=== PATIENT | male | born 1955 | race Caucasian/White ===

== ENCOUNTER → 2018-07-13 09:32 | Outpatient (CLI) | payer BC, SELFPAY ==
--- NOTE | 2018-07-13 09:36 | RAD_ITS ---
STUDY: AIR-CONTRAST UPPER GI SERIES. REASON FOR EXAM: Male, 62 years old. The patient has a history of achalasia. Weight loss. Vomiting. FLUOROSCOPY TIME (if supplied): (1:10) minutes/seconds. 17 images were obtained. TECHNIQUE: The patient ingested barium. Multiple images of the esophagus, stomach and duodenum were obtained. COMPARISON: None. FINDINGS: There is a marked degree of distention of the esophagus. There is no evidence of peristaltic activity. There is narrowing at the most distal portion of the esophagus. Findings are in keeping with achalasia. The stomach and duodenum are unremarkable. RAD/Upper GI Series Only IMPRESSION: Marked distention of the esophagus with retained barium and food particles as described with narrowing of the distal esophagus. There is no peristaltic activity of the esophagus. Achalasia should be ruled out. Electronically Signed: Jaswinder Guillory MD at 10:24 EST Tel [phone], Service support ,
--- OUTSIDE RECORDS SUMMARY | 2018-08-29 03:12 | XMS RPT_ITS | Summary of Care ---
:1955 Author Organization [facility] Address [address] [place] [address] Phone Care Team Providers Name Role Phone Unavailable Primary Care Provider Unavailable Encounter Details Date Type Department Care Team Description 07/27/2017 Hospital Encounter [facility], [facility], [address] [place] [address] [address] [phone] [place] [address] Social History Tobacco Use Types Packs/Day Years Used Date Never Assessed Sex Assigned at Date Recorded Not on file as of this encounter Plan of Treatment Not on fileas of this encounter
--- OUTSIDE RECORDS SUMMARY | 2018-08-29 03:12 | XMS RPT_ITS | Summary of Care ---
:1955 Author Organization [facility] Address [address] [place] [address] Phone Care Team Providers Name Role Phone Unavailable Primary Care Provider Unavailable Encounter Details Date Type Department Care Team Description 07/07/2018 [facility] Haris Hook MD Arrived [address] [place] [address] [address] [place] [address] Social History Tobacco Use Types Packs/Day Years Used Date Never Assessed Sex Assigned at Date Recorded Not on file as of this encounter Plan of Treatment Health Maintenance Due Date Last Done Comments HEPATITIS C VIRUS SCREENING 1955 HIV SCREENING DISCUSSION 1968 TETANUS 1973 TDAP (ADULT) 1974 LIPID SCREENING 1995 COLON CANCER SCREENING DISCUSSION 2005 PROSTATE CANCER SCREENING DISCUSSION 2005 INFLUENZA VACCINE (#1) 2018 as of this encounter
--- OUTSIDE RECORDS SUMMARY | 2018-08-29 03:12 | XMS RPT_ITS ---
:1955 Author Organization [place] Care Team Providers Name Role Phone German Pantoja Attending Unavailable German Pantoja Referring Unavailable [facility] Unavailable KO BLAKELY W Attending Unavailable SELF, SELF Referring Unavailable MASCI, PAYAM A Referring Unavailable MASCI, PAYAM A Attending Unavailable MASCI, PAYAM Quintana Referring Unavailable HANTUSZAN Attending Unavailable HANTUSZAN Referring Unavailable MASCIPAYAM Referring Unavailable MASCIPAYAM Attending Unavailable MASCPAYAM Dunn Referring Unavailable RHONDATZAN PERAZA Attending Unavailable MASCIPAYAM Referring Unavailable GERMAN PANTOJA Attending Unavailable MASCPAYAM Dunn Referring Unavailable FAITH, SUDISH Attending Unavailable GERMAN PANTOJA Referring Unavailable KO BLAKELY Admitting Unavailable KO BLAKELY Attending Unavailable KO BLAKELY Consulting Unavailable NONE, NONE Consulting Unavailable KO BLAKELY Admitting Unavailable KO BLAKELY Attending Unavailable KO BLAKELY Consulting Unavailable PROBLEMS PROBLEMS DATE TYPE CONDITION / ATTENDING STATUS SOURCE CODE 07/13/2018 Active Early satiety / NA Active [facility] R68.81(ICD-10) [facility] [place] Repository 07/12/2018 Unknown MALIGNANT KO BLAKELY Active [facility] NEOPLASM OF Hospital PROSTATE / Repository C61(ICD-10) 07/12/2018 Admitting PROSTATE CA / KO BLAKELY Active [facility] diagnosis 185(ICD-9) Hospital Repository 07/12/2018 Unknown PROSTATE CA / ZORA, KO Active [facility] 185(ICD-9) Hospital Repository 07/12/2018 Admitting MALIGNANT ZORA, KO Active [facility] diagnosis NEOPLASM OF Hospital PROSTATE / Repository C61(ICD-10) 07/11/2018 Unknown ELEVATED KO BLAKELY Active [facility] PROSTATE SPEC Hospital ANTIGEN / Repository R97.20(ICD-10) 07/11/2018 Admitting ELEVATED KO BLAKELY Active [facility] diagnosis PROSTATE SPEC Hospital ANTIGEN / Repository R97.20(ICD-10) 07/15/2016 Active Lymphoid NA Active [facility] leukemia, [facility] [place] unspecified, in Repository relapse / C91.92(ICD-10) PROCEDURES PROCEDURES No Procedure Records FoundRESULTS RESULTS PROGRESS Observed: 07/18/2018 Status: COMPLETED Source: [place] 11:17 AM [facility] RE[facility]IT[facility] HNO ID: [id number] Author: Vivek London Service: (none) Author Type: Physician Type: Progress Notes Filed: 07/18/2018 11:17 AM Note Text: I have read and reviewed the documentation and agree. I wish to add the following findings which have been dictated. Vivek London MD, PhD CNOV Observed: 07/18/2018 Status: COMPLETED Source: [place] 10:20 AM [facility] Office Visit (BENJAMIN) KEYSHAWN JO ([id number]) 1955 M Date Time Provider Department 07/18/18 10:20 AM VIVEK LONDON During your visit today, we recorded the following information about you: Temperature Pulse Blood pressure Weight 97.8 degrees 57/minute 155/82 107.5 kg Height 1.854 m Sally Butler, RN, RN 07/18/2018 11:17 AM Signed [facility] OUTPATIENT CONSULT NOTE Keyshawn Jo [id number] Requesting Provider: Dr. Pantoja Thoracic Physician: Vivek London MD Chief Complaint: sigmoid esophagus s/p lap heller 1999 (former pt of Dr. Barnes) Impression: see dictation Plan: see dictation HPI: Keyshawn Jo is a 62 year old White male referred by Dr. Pantoja for an opinion regarding management of sigmoid esophagus s/p lap heller 1999 (former pt of Dr. Barnes). he is currently see dictation. See dictation ECOG Score: 0 Living arrangement: Lives with family/friend Functional status: Independent Unintentional weight loss over last 3 months: Yes, 50lbs over the last year PAST MEDICAL HISTORY: PAST MEDICAL HISTORY Diagnosis Date - Achalasia - Bladder stone - Bradycardia - Chikungunya fever - CLL (chronic lymphocytic leukemia) (HCC) - Hypertension - Kidney stone - Meniscus tear Left knee - Prostate CA (HCC) PAST SURGICAL HISTORY: PAST SURGICAL HISTORY Procedure Laterality Date - HELLER MYOTOMY, THOR 1999 - KNEE ARTHROSCOP MENISCUS REPAIR MED/LAT left - PAST SURGICAL HISTORY OF 02/03/2017 Umbilical Hernia - REMOVAL OF KIDNEY STONE - REMOVE BLADDER STONE,<2.5CM - TOTAL KNEE REPLACEMENT 02/05/2015 Left knee FAMILY HISTORY: FAMILY HISTORY Problem Relation Age of Onset - Hypertension Mother - other (kidney stone) Mother - Hypertension Father - Cancer Father Melanoma - other (kidney stone) Father - other (kidney stone) Brother - Cancer Paternal Grandfather throat SOCIAL HISTORY: Social History Substance Use Topics - Smoking status: Never Smoker - Smokeless tobacco: Never Used - Alcohol use No MEDICATIONS: Prior to Admission Medications: clonazePAM (KLONOPIN) 0.5 mg tablet Take 1 tablet by mouth daily at bedtime for 180 days. lisinopril (ZESTRIL, PRINIVIL) 20 mg tablet Take 20 mg by mouth once daily. zonisamide (ZONEGRAN) 100 mg capsule Take 1 cap in the AM and 4 caps in the PM ALLERGIES: ALLERGIES Allergen Reactions - Asa [Aspirin] Hives - Ibuprofen Hives Pt. 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 No COMPLETE REVIEW OF SYSTEMS Constitutional: Negative for Malaise and fever, Positive for significant weight loss HEENT: Negative for frequent or significant headaches, No changes in hearing or vision, no nose bleeds or other nasal problems Resp: Negative for cough, wheezing, or shortness of breath Cardiovascular: Positive for chest pain GI: Positive for constipation : No history of dysuria, frequency, or incontinence, positive for prostate cancer Endo: Negative for cold or heat intolerance, polyuria, polydipsia and goiter Heme/Lymph: Negative for prolonged bleeding, bruising easily or swollen nodes Neurologic: Positive for seizures Integumentary: Negative for lesions, rash, and itching. Additional systems reviewed: Musculoskeletal: Negative for joint pain or swelling, back pain or muscle pain and Psychiatric: Positive for sleep disturbance PHYSICAL EXAM BP 155/82 Pulse 57 Temp 97.8 Ht 6' 1 (1.85m) Wt 237 lb (107.5kg) SpO2 99% BMI 31.27 kg/(m2). See dictation DATA: Radiology: see dictation I have personally reviewed the following images/data: see dictation Outside Paper Medical Records Review personally performed by: see dictation SIGNATURE: Dr. London DATE of SERVICE: 07/18/2018 TIME of SERVICE: 10:08 AM Bruce Velazquez 07/18/2018 10:09 AM Signed Offered and declined Flu vaccine. Vivek London MD, PhD 07/18/2018 11:17 AM Signed I have read and reviewed the documentation and agree. I wish to add the following findings which have been dictated. Vivek London MD, PhD Referring Provider: GERMAN PANTOJA [[id number]] Allergies As of Date: 07/18/2018 Noted Allergy Reaction ASA (ASPIRIN) 10/11/2013 4 - Hives IBUPROFEN 10/11/2013 4 - Hives Comments: Pt. can't take larger doses of ibuprofen, but can tolerate 1 tab as needed TYLENOL (ACETAMINOPHEN) 10/11/2013 4 - Hives Date Reviewed: 07/18/2018 Reviewed by: Bruce Velazquez - Fully Assessed Primary Visit Diagnosis:ACHALASIA [K22.0] Prescriptions as of 07/18/2018 Sig: CLONAZEPAM 0.5 MG TABLET Take 1 tablet by mouth daily * LISINOPRIL 20 MG TABLET Take 20 mg by mouth once blanche* ZONISAMIDE 100 MG CAPSULE Take 1 cap in the AM and 4 ca* Problem List As Of Date 07/18/2018 Noted Resolved CLL (chronic lymphocytic leukemia) (HCC) [C91.9*INVALID FOR*07/15/2016 Prostate cancer [C61] INVALID FOR* Uric acid bladder stone [N21.0] INVALID FOR* BPH (benign prostatic hypertrophy) with urinary*INVALID FOR* Elevated prostate specific antigen (PSA) [R97.2*INVALID FOR* CLL (chronic lymphoid leukemia) in relapse (HCC*INVALID FOR* Chemotherapy induced nausea and vomiting [R11.2*INVALID FOR* Partial epilepsy with impairment of consciousne*INVALID FOR* Visit Notes: >> Bruce Joshi Jul 18, 2018 10:08 AM Status: Signed Offered and declined Flu vaccine. Medications Discontinued During This Encounter ibrutinib (IMBRUVICA) 140 mg capsule 30 c* 5 07/05/2017 07/18/2018 Class: [facility] [place] Special[facility] RX Cmt: Patient currently has enough medication to last until September. Route: ORAL Sig: Take 1 capsule by mouth once daily. Patient not taking: Reported on 02/13/2018 Disc: Discontinued by another Health Care Provider melatonin 10 mg tab 07/18/2018 Class: Historical Med Route: ORAL Sig: Take 1 tablet by mouth at bedtime as needed. Disc: Discontinued by another Health Care Provider ondansetron (ZOFRAN) 8 mg tablet 120 * 5 01/25/2017 07/18/2018 Route: ORAL Sig: Take 1 tablet by mouth every 6 hours as needed for Nausea/Vomiting. Indications: CANCER CHEMOTHERAPY-INDUCED NAUSEA AND VOMITING Patient not taking: Reported on 07/07/2018 Disc: Discontinued by another Health Care Provider Follow-up and Disposition History Recorded Encounter Status:Closed by FAITH FLOR, VIVEK Crum PHD on 07/18/18 PROGRESS Observed: 07/18/2018 Status: COMPLETED Source: [place] 10:07 AM [facility] REPOSITORY HNO ID: [id number] Author: Sally (Rn) ARNOLD Butler Service: (none) Author Type: Registered Nurse Type: Progress Notes Filed: 07/18/2018 11:17 AM Note Text: [facility] OUTPATIENT CONSULT NOTE Keyshawn Jo [id number] Requesting Provider: Dr. Pantoja Thoracic Physician: Vivek London MD Chief Complaint: sigmoid esophagus s/p lap heller 1999 (former pt of Dr. Barnes) Impression: see dictation Plan: see dictation HPI: Keyshawn Jo is a 62 year old White male referred by Dr. Pantoja for an opinion regarding management of sigmoid esophagus s/p lap heller 1999 (former pt of Dr. Barnes). he is currently see dictation. See dictation ECOG Score: 0 Living arrangement: Lives with family/friend Functional status: Independent Unintentional weight loss over last 3 months: Yes, 50lbs over the last year PAST MEDICAL HISTORY: PAST MEDICAL HISTORY Diagnosis Date - Achalasia - Bladder stone - Bradycardia - Chikungunya fever - CLL (chronic lymphocytic leukemia) (HCC) - Hypertension - Kidney stone - Meniscus tear Left knee - Prostate CA (HCC) PAST SURGICAL HISTORY: PAST SURGICAL HISTORY Procedure Laterality Date - HELLER MYOTOMY, THOR 1999 - KNEE ARTHROSCOP MENISCUS REPAIR MED/LAT left - PAST SURGICAL HISTORY OF 02/03/2017 Umbilical Hernia - REMOVAL OF KIDNEY STONE - REMOVE BLADDER STONE,<2.5CM - TOTAL KNEE REPLACEMENT 02/05/2015 Left knee FAMILY HISTORY: FAMILY HISTORY Problem Relation Age of Onset - Hypertension Mother - other (kidney stone) Mother - Hypertension Father - Cancer Father Melanoma - other (kidney stone) Father - other (kidney stone) Brother - Cancer Paternal Grandfather throat SOCIAL HISTORY: Social History Substance Use Topics - Smoking status: Never Smoker - Smokeless tobacco: Never Used - Alcohol use No MEDICATIONS: Prior to Admission Medications: clonazePAM (KLONOPIN) 0.5 mg tablet Take 1 tablet by mouth daily at bedtime for 180 days. lisinopril (ZESTRIL, PRINIVIL) 20 mg tablet Take 20 mg by mouth once daily. zonisamide (ZONEGRAN) 100 mg capsule Take 1 cap in the AM and 4 caps in the PM ALLERGIES: ALLERGIES Allergen Reactions - Asa [Aspirin] Hives - Ibuprofen Hives Pt. 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 No COMPLETE REVIEW OF SYSTEMS Constitutional: Negative for Malaise and fever, Positive for significant weight loss HEENT: Negative for frequent or significant headaches, No changes in hearing or vision, no nose bleeds or other nasal problems Resp: Negative for cough, wheezing, or shortness of breath Cardiovascular: Positive for chest pain GI: Positive for constipation : No history of dysuria, frequency, or incontinence, positive for prostate cancer Endo: Negative for cold or heat intolerance, polyuria, polydipsia and goiter Heme/Lymph: Negative for prolonged bleeding, bruising easily or swollen nodes Neurologic: Positive for seizures Integumentary: Negative for lesions, rash, and itching. Additional systems reviewed: Musculoskeletal: Negative for joint pain or swelling, back pain or muscle pain and Psychiatric: Positive for sleep disturbance PHYSICAL EXAM BP 155/82 Pulse 57 Temp 97.8 Ht 6' 1 (1.85m) Wt 237 lb (107.5kg) SpO2 99% BMI 31.27 kg/(m2). See dictation DATA: Radiology: see dictation I have personally reviewed the following images/data: see dictation Outside Paper Medical Records Review personally performed by: see dictation SIGNATURE: Dr. London DATE of SERVICE: 07/18/2018 TIME of SERVICE: 10:08 AM HOSP Observed: 07/18/2018 Status: COMPLETED Source: [place] 12:00 AM [facility] Patient Update (BENJAMIN) KEYSHAWN JO ([id number]) 1955 M Date Time Provider Department 07/18/18 VIVEK LONDON During your visit today, we recorded the following information about you: Allergies As of Date: 07/18/2018 Noted Allergy Reaction ASA (ASPIRIN) 10/11/2013 4 - Hives IBUPROFEN 10/11/2013 4 - Hives Comments: Pt. can't take larger doses of ibuprofen, but can tolerate 1 tab as needed TYLENOL (ACETAMINOPHEN) 10/11/2013 4 - Hives Date Reviewed: 07/18/2018 Reviewed by: Bruce Velazquez - Fully Assessed Reason for Visit: Schedule Surgery [1330] Primary Visit Diagnosis:ACHALASIA [K22.0] Other Visit Diagnoses:Achalasia of cardia [K22.0] Encounter for other preprocedural examination [Z01.818] Order(s):SURGICAL REQUEST - ELECTIVE [[id number]] Order #: [id number]: 1 CT CHEST W IVCON [[id number]] Order #: [id number] FUTURE CT ABDOMEN W IVCON [[id number]] Order #: [id number] FUTURE iv contrast (will be provided with radiology test)CT Chest Abdomen-Inject, intravenously, once for 1 dose.No IV access, insert saline lock prior to the beginning of sedation, infusion, injection of imaging exam. Discontinue saline lock post exam. If Pt. has a central line or IVAD, may access for administration according to line specific nursing protocol. Once exam is complete flush line and de-access according to line specific nursing protocol in the CT contrast administration guidelines link.Disp: 1 EachRfl: 0 enteric contrast (will be provided with radiology test)For CT Chest Abdomen W IVCON order Administer, As Directed One Time Only, via Oral, Rectal, both Oral and Rectal, Enteric Tube, Stoma or Indwelling Catheter, Enteric Contrast as designated per enteric contrast guidelinesDisp: 1 EachRfl: 0 SIX MINUTE WALK [[id number]] Order #: [id number] FUTURE SPIROMETRY WITH DILATOR IF OBSTRUCTED [[id number]] Order #: [id number] FUTURE LUNG DIFFUSION CAPACITY (DLCO) [[id number]] Order #: [id number] FUTURE EXERCISE STRESS W/NUC IMAGING [[id number]] Order #: [id number]: 1 NM CARDIAC PERF STRESS/EXERCISE [[id number]] Order #: [id number] FUTURE Prescriptions as of 07/18/2018 Sig: CLONAZEPAM 0.5 MG TABLET Take 1 tablet by mouth daily * ENTERIC CONTRAST (RADIOLOGY P* For CT Chest Abdomen W IVCON * IV CONTRAST (RADIOLOGY PROCED* CT Chest Abdomen-Inject, intr* LISINOPRIL 20 MG TABLET Take 20 mg by mouth once blanche* ZONISAMIDE 100 MG CAPSULE Take 1 cap in the AM and 4 ca* Problem List As Of Date 07/18/2018 Noted Resolved CLL (chronic lymphocytic leukemia) (HCC) [C91.9*INVALID FOR*07/15/2016 Prostate cancer [C61] INVALID FOR* Uric acid bladder stone [N21.0] INVALID FOR* BPH (benign prostatic hypertrophy) with urinary*INVALID FOR* Elevated prostate specific antigen (PSA) [R97.2*INVALID FOR* CLL (chronic lymphoid leukemia) in relapse (HCC*INVALID FOR* Chemotherapy induced nausea and vomiting [R11.2*INVALID FOR* Partial epilepsy with impairment of consciousne*INVALID FOR* Achalasia, esophageal [K22.0] INVALID FOR* More... Prescriptions ordered this encounter Disp Refills Start End IV CONTRAST (RADIOLOGY PROCEDURE) 1 Ea* 0 07/18/2018 07/19/2018 Class: In Office Sig: CT Chest Abdomen-Inject, intravenously, once for 1 dose.No IV access, insert saline lock prior to the beginning of sedation, infusion, injection of imaging exam. Discontinue saline lock post exam. If Pt. has a central line or IVAD, may access for administration according to line specific nursing protocol. Once exam is complete flush line and de-access according to line specific nursing protocol in the CT contrast administration guidelines link. Cosign required by VIVEK LONDON[[id number]] ENTERIC CONTRAST (RADIOLOGY PROCEDUR* 1 Ea* 0 07/18/2018 07/19/2018 Class: In Office Sig: For CT Chest Abdomen W IVCON order Administer, As Directed One Time Only, via Oral, Rectal, both Oral and Rectal, Enteric Tube, Stoma or Indwelling Catheter, Enteric Contrast as designated per enteric contrast guidelines Cosign required by VIVEK LONDON[[id number]] Follow-up and Disposition History Recorded Encounter Status:Closed by SUSIE LEW on 07/18/18 PROGRESS Observed: 07/15/2018 Status: COMPLETED Source: [place] 9:35 AM [facility] [place] REPOSITORY O ID: [id number] Author: German Pantoja Service: (none) Author Type: Physician Type: Progress Notes Filed: 07/15/2018 9:59 AM Note Text: HISTORY AND PHYSICAL Keyshawn Jo 1955 REFERRING PHYSICIAN: Payam Mills DO CHIEF COMPLAINT: egd consult - worsening dysphagia HPI: The patient is a 62 year old male referred to me by Dr. Payam Mills with complaints of worsening dysphagia. The patient has a history of chronic lymphocytic leukemia and prostate cancer. 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 He returns to [place] approximately twice a year for medical care in to see family. He related to Dr. Mills the fact that he has difficulty drinking water and early satiety. He was referred to me with the above complaints. Has a listed history of achalasia. There is no listing in a surgical history for a previous surgical procedure but review of distant surgical records demonstrates he underwent a laparoscopic Heller myotomy performed by Dr. Vaughn Barnes March 23, 2000. I had ordered and asked that he upper GI be obtained prior to presentation and possible endoscopy. The patient notes that he is at difficulty with swallowing for some time. He initially underwent balloon dilatation and when that failed his Heller myotomy. He states he has had worsening issues with food being retained within his esophagus. He basically feels he has to have food pass through gravity. He notes that he bends over he will regurgitate food eaten many hours previously. He specifically notes that he will occasionally eat a solid food item 2-3 meals previously. If he bends over then that food will regurgitate but liquid smaller foods seem to pass and not get regurgitated. The patient is being seen by me today at the request of Dr. Mills for my opinion and advice regarding worsening dysphagia. Upper GI series was obtained earlier today. This demonstrated marked distention the esophagus with retained barium and food particles with distal narrowing of the esophagus. There is felt to be no peristaltic activity the esophagus. Listed comment was achalasia should be ruled out PAST MEDICAL HISTORY Diagnosis Date - Achalasia - Bladder stone - Chikungunya fever - CLL (chronic lymphocytic leukemia) (HCC) - Kidney stone - Meniscus tear Left knee - Prostate CA (HCC) PAST SURGICAL HISTORY Procedure Laterality Date - KNEE ARTHROSCOP MENISCUS REPAIR MED/LAT left - PAST SURGICAL HISTORY OF 02/03/2017 Hernia - REMOVAL OF KIDNEY STONE - REMOVE BLADDER STONE,<2.5CM - TOTAL KNEE REPLACEMENT 02/05/2015 Left knee Current Outpatient Prescriptions: clonazePAM (KLONOPIN) 0.5 mg tablet Take 1 tablet by mouth daily at bedtime for 180 days. ibrutinib (IMBRUVICA) 140 mg capsule Take 1 capsule by mouth once daily. (Patient not taking: Reported on 02/13/2018 ) lisinopril (ZESTRIL, PRINIVIL) 20 mg tablet Take 20 mg by mouth once daily. melatonin 10 mg tab Take 1 tablet by mouth at bedtime as needed. ondansetron (ZOFRAN) 8 mg tablet Take 1 tablet by mouth every 6 hours as needed for Nausea/Vomiting. Indications: CANCER CHEMOTHERAPY-INDUCED NAUSEA AND VOMITING (Patient not taking: Reported on 07/07/2018 ) zonisamide (ZONEGRAN) 100 mg capsule Take 1 cap in the AM and 4 caps in the PM No current facility-administered medications for this visit. ALLERGIES: Asa [Aspirin]; Ibuprofen; Tylenol [Acetaminophen] PERSONAL HISTORY: Social History Marital status: Spouse name: Years of education: Number of children: Occupational History Occupation Employer Comment [employer] Social History Main Topics Smoking status: Never Smoker Smokeless tobacco: Never Used Alcohol use: No Drug use: No FAMILY HISTORY: FAMILY HISTORY Problem Relation Age of Onset - Hypertension Mother - other (kidney stone) Mother - Hypertension Father - Cancer Father Melanoma - other (kidney stone) Father - other (kidney stone) Brother - Cancer Paternal Grandfather throat REVIEW OF SYMPTOMS: The review of systems data was entered by the nurse and reviewed by or Nursing Notes: Thu Goldman Ma 07/13/2018 4:58 PM Signed REVIEW OF SYSTEMS: General: The patient NOTES fatigue, NOTES weight loss, denies weight gain, denies feeling hot, and denies feelings of cold. Eyes: The patient denies glaucoma, denies eye injury/surgery, does not wear glasses or contacts. Ear/Nose/Throat: The patient denies allergies, denies hayfever, denies ear infections, and denies bloody noses. Cardiovascular: The patient denies chest pain, denies heart disease, denies high blood pressure,denies cardiac stent, denies prior heart attack, denies irregular heart beat, denies high cholesterol, denies poor circulation, denies heart failure, other cardiac issues, denies claudication, denies cold feet, denies peripheral arterial stent. Respiratory: The patient denies tuberculosis, denies pneumonia, denies frequent cough, denies pulmonary embolism, denies shortness of breath, and denies coughing up blood. Gastrointestinal: The patient NOTES difficulty swallowing, NOTES acid reflux, denies ulcers, NOTES vomiting, denies jaundice/hepatitis, denies gallbladder problems, denies black or tarry stools, denies hemorrhoids, denies bleeding from rectum, denies diverticulitis, NOTES constipation, denies diarrhea, denies loss of stool control, and NOTES hernias. Kidney/Bladder: The patient NOTES kidney stones, denies urine infections, and NOTES bloody urine. Skin: The patient denies a history of skin cancer, denies bleeding/changing moles, and denies a history of skin rash. Neurologic: The patient NOTES a history of epilepsy/convulsions, denies headaches, denies head/spinal injuries, and denies stroke/TIA. Psychiatric: The patient denies psychiatric medications, denies depression, and denies voices, denies substance abuse. Endocrine: The patient denies thyroid disorders, denies diabetes, and denies hormonal problems. Hematologic: The patient denies a history of bruising, denies bleeding, and denies anemia, denies blood clots. Infections: The patient denies a history of measles and mumps, denies rheumatic fever, and denies sexually transmitted diseases. Musculoskeletal: The patient denies back pain/injury, denies back problems, denies sciatica, NOTES knee/foot trouble, denies arthritis, or denies gout. When was patient's last Mammogram screening? N/A Last Colonoscopy: At age 50 Thu Goldman Ma PHYSICAL EXAMINATION: General: The patient is 62 year old male, well nourished, well hydrated in no acute distress. The patient is oriented to time, place, and person. VITALS: Blood pressure 118/78, pulse (!) 46, temperature 36.3 ?C (97.3 ?F), temperature source Temporal Artery, resp. rate 16, height 185.4 cm (6' 1), weight 109.3 kg (241 lb). HEENT: Normal cephalic, ataumatic, pupils are equally round, sclera are anicteric, mucous membranes are moist, oropharynx is clear. Neck has no masses, asymmetry or lymphadenopathy. Thyroid is unremarkable. Respiratory: Clear to auscultation and percussion. Normal respiratory excursion and pattern. Cardiac: Examination is regular rate and rhythm. Abdominal exam: Soft, nontender, with no palpable masses. No hepatosplenomegaly. No palpable hernias. Rectal exam: exam deferred Extremities: no clubbing, cyanosis or edema. No adenopathy. Other: LABORATORY VALUES: As Noted RADIOLOGIC STUDIES: As Noted Assessment IMPRESSION: Severe recurring achalasia status post previous surgical procedure PLAN: I discussed with the patient this is the most impressive upper GI series I had ever seen. I was particularly impressed with his esophagus appeared larger than his stomach. I discussed with the patient I did not feel I could offer him any benefit via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 glucose results between 100 to 125 mg/dL indicate increased risk for diabetes (prediabetes). Fasting plasma glucose results greater than or equal to 126 mg/dL meet the criteria for diagnosis of diabetes. In the absence of unequivocal hyperglycemia, results should be confirmed by repeat testing. In a patient with classic symptoms of hyperglycemia or hyperglycemic crisis, random plasma glucose results greater than or equal to 200 mg/dL meet the criteria for diagnosis of diabetes. Reference: Standards of Medical Care in Diabetes 2016, [place] [employer] Association. Diabetes Care. 2016.39(Suppl 1). LAB BUN 9-24 mg/dL BUN 19 LAB CRET 0.73-1.22 mg/dL Creatinine 1.08 LAB NA 136-144 mmol/L Sodium 141 LAB K 3.7-5.1 mmol/L Potassium 4.1 LAB CL 97-105 mmol/L Chloride 105 LAB CO2 22-30 mmol/L CO2 26 LAB AGAP 9-18 mmol/L Anion Gap 10 LAB ALT 10-54 U/L ALT 15 LAB GFRAA eGFR- Amer. >60 LAB GFRNAA . eGFR-All Other Races >60 Result Comment: eGFR (Estimated GFR) Units of measure: mL/min/1.73 meters squared eGFR is derived from the reexpressed MDRD Study equation using the following parameters: serum creatinine, age, gender and race. The creatinine assay has been calibrated to be traceable to IDMS. An eGFR <60 mL/min/1.73m2 for >3 months is consistent with chronic kidney disease. Refer to KDOQI guidelines for clinical interpretation. In patients with unstable renal function, e.g. those with acute kidney injury, the eGFR may not accurately reflect actual GFR. Performed By: #### CMP #### [facility] [address] [place], [place] [address] PROGRESS Observed: 10/13/2017 Status: COMPLETED Source: GOLTRY 10:15 AM [facility] REPOSITORY HNO ID: [id number] Author: Magdalene Velez (Outpatient Tech) Service: (none) Author Type: (none) Type: Progress Notes Filed: 10/25/2017 2:33 PM Note Text: Unable to reach patient for refill of medication after multiple call attempts. Future follow-up scheduled. Magdalene Velez CPhT Machine Shop Worker, Oncology [facility] P: , F: ALLERGIES ALLERGIES DATE TYPE / CODE NAME / CODE REACTION SEVERITY SOURCE 05/06/2015 Drug aspirin/[id number]( Hives Unknown [place] Allergy/416 RXNORM) [facility] 213331([facility] ED CT) Repository 05/06/2015 Drug acetaminophen/F0060 Hives Unknown [place] Allergy/416 26543(RXNORM) [facility] 132569([facility] ED CT) Repository 05/06/2015 Drug ibuprofen/[id number] Hives Unknown [place] Allergy/416 7(RXNORM) [facility] 989527([facility] ED CT) Repository 10/11/2013 [facility] [place] 155313(SNOM Repository ED CT) 10/11/2013 [facility] [place] 717245(SNOM Repository ED CT) 10/11/2013 [facility]UG [facility]INOPHEN [facility] [place] [address] [address] [place] 566121(SNOM Repository ED CT) ENCOUNTERS ENCOUNTERS ADMIT/DISCHARGE ACCOUNT NUMBER ADMITTING ENCOUNTER LOCATION SOURCE CLASS 07/18/2018/07/28/20 [id number] [address] [place] Repository 07/13/2018/07/17/20 [id number] Ambulatory [address] [place] Repository 07/13/2018/07/13/20 [id number] Ambulatory [address] Repository 07/13/2018 [id number] Ambulatory [facility] ding:RAD Repository 07/12/2018/07/12/20 [id number] Ambulatory [address] Repository 07/11/2018 [id number] KO BLAKELY Ambulatory [facility] Repository :OUTPATIENT 07/07/2018 [id number] Ambulatory Building:[facility] Repository 07/07/2018/07/10/20 [id number] Ambulatory [address] Repository 07/07/2018/07/07/20 [id number] Ambulatory [address] Repository 07/04/2018/07/04/20 [id number] KO BLAKELY Ambulatory [facility] [facility] Repository :LAB 02/13/2018/02/14/20 [id number] Ambulatory [address] Repository 02/07/2018/02/09/20 [id number] Ambulatory [address] Repository 02/07/2018/02/09/20 [id number] Ambulatory [address] Repository PAYERS PAYERS ENCOUNTER GUARANTOR PAYER SUBSCRIBER SOURCE 07/13/2018 KEYSHAWN Luis Primary KEYSHAWN L Marlene [id number] Insurance:ANTHEMPolic BENSONDOB: [facility], [facility]: [id number] 12021Wqm: [id number] Repository Date:6433-51-15KT [address] () [id number] [place] [address] 78845EE: 07/13/2018 Secondary NOT GIVENUNK [place] Insurance:SELF PAY [facility] Number: Effective Repository Date:2018-07-07 07/11/2018 KEYSHAWN Henry KEYSHAWN [facility] BENSONDOB: Insurance:ANTHEMPolic BENSONDOB: [facility] y Number: [id number] Repository [facility] [id number] [address] [place], [place] Date:9315-79[place] [address] 79[address]Sia: [phone], [place] [phone] (HP) [address]3242~ [address]: 07/07/2018 KEYSHAWN BRAUN [facility] BENSONDOB: Insurance:ANTHEM O BENSONDOB: [place] O POSPolicy Number: [id number] [facility] [id number] [address] [place], [place] Date:7016[place]46[place], [place] Repository [address]Jcd: [phone] Name:MANAGED CARE 25074Gvc: (HP) [phone] (HP) 07/04/2018 KEYSHAWN [facility]WN [facility] Insurance:ANTHEMPolic [facility] y Number: [id number] Repository [facility] [id number] [address] [place], [place] Date:0121-61-43[place] [address] 486[address]Mni: [phone], [place] [phone] () [phone]~[facility] [phone]:
== END ==
PROVIDERS: Family Provider Family Medicine; PCP Family Medicine; Referring Provider Surgery; Visit Provider Surgery
DX: R13.10 Dysphagia, unspecified (principal)
CPT/HCPCS: 74246

== ENCOUNTER 2021-09-28 22:21 | Emergency (ER) | payer MEDICARE, OTHER, SELFPAY ==
[2021-09-28 22:22] VITALS: BP 133/74; PULSE 75; RESP 18; TEMP 36.4; O2SAT 96; BMI 29.2
[2021-09-28] MEDS: 0.9% Normal Saline 1,000 ML 50 ML IV (23:02)
--- NOTE | 2021-09-28 23:05 | RAD_ITS ---
EXAM: XR CHEST, 2 VIEWS CLINICAL INDICATION: Neutropenic Fever TECHNIQUE: Frontal and lateral views of the chest. This report was created using [employer] report generation technology. COMPARISON: 05/06/2015 FINDINGS: LUNGS AND PLEURAL SPACES: Unremarkable. No consolidation or edema. No pneumothorax. No effusion. HEART: Unremarkable. Cardiac silhouette not enlarged. MEDIASTINUM: Central airways and mediastinal contour are unremarkable. BONES/JOINTS: Unremarkable. SOFT TISSUES: Unremarkable. RAD/Chest PA and Lateral IMPRESSION: No radiographic evidence of acute cardiopulmonary disease. Electronically Signed: Lam Hurtado MD at 23:46 EST ,
[2021-09-28 23:06] LABS: Bacteria 0 SEEN /hpf (None Seen); Mucous, Urine 0 SEEN /hpf (<or=2+); Squamous Epithelial Cells - UA 0 SEEN /hpf (0-5); White Blood Cells 0 SEEN /hpf (0-5)
[2021-09-28 23:14] LABS: Color, Urine Yellow (Yellow); Glucose, Dipstick Normal (Normal); Ketone-Dipstick Negative (Negative); Leukocyte Esterase-Dipstick Negative /ul (Negative); Nitrite-Dipstick Negative (Negative); Occult Blood-Urine 25 /ul (Negative); Protein-Dipstick Negative (Negative); Specific Gravity, Urine 1.015 (1.002-1.030); Urine Bilirubin Dipstick Negative (Negative); Urine Clarity Clear (Clear); Urine Urobilinogen Normal (Normal)
[2021-09-28 23:19] LABS: Absolute Lymphocyte Count 82.18 X10^3/uL (0.83-4.51); Absolute Neutrophil Count 10.1 X10^3/uL (2.0-7.7); Basophil# 0.05 X10^3/uL; Eosinophil# 0.02 X10^3/uL; Hematocrit 38.9 % (40-54); Hemoglobin 12.4 g/dL (13.0-16.5); Lymphocyte # 82.18 X10^3/ul (0.83-4.51); Lymphocyte % 82.1 % (19-41); Mean Corp Hgb Conc 31.9 g/dL (32-36); Mean Corpuscular Hgb 28.8 pg (27.0-32.0); Mean Corpuscular Volume 90.3 fL (80-94); Mean Platelet Vol. 9.8 fl (6.2-12.0); Monocyte# 7.37 X10^3/uL; Monocyte% 7.4 % (0-10); NRBC Flagged by Analyzer 0 % (0-5); Neutrophil # 10.11 X10^3/uL (2.7-7.7); Neutrophil % 10.1 % (47-70); POSITIVE COUNT YES; POSITIVE DIFFERENTIAL YES; POSITIVE MORPHOLOGY YES; Platelet Count 198 K/mm3 (150-450); RBC Distribution Width CV 16.4 % (11.6-14.6); RBC Distribution Width SD 52.9 fl (35.1-43.9); Red Blood Count 4.31 M/mm3 (4.6-6.2)
[2021-09-28 23:21] LABS: International Normalized Ratio 1.2; Prothrombin Time (Protime)PT. 14.6 SECONDS (11.7-14.9)
[2021-09-28 23:22] LABS: Red Blood Cells-Urine 0-5 SEEN /hpf (0-5)
[2021-09-28 23:26] VITALS: BP 125/80; PULSE 59; RESP 14; TEMP 36.8; O2SAT 95
[2021-09-28 23:27] LABS: ALB/GLOB Ratio 1.1 RATIO (0.9-2.4); AST(SGOT) 43 U/L (15-37); Alanine Aminotransfer ALT/SGPT 39 U/L (16-61); Albumin, Serum 3.1 g/dL (3.2-5.0); Alkaline Phosphatase 120 U/L (45-117); Anion Gap 5 (5-15); BUN 21 mg/dL (7-18); BUN/Creat Ratio 21.1 RATIO (10-20); Calcium,Total 9.3 mg/dL (8.5-10.1); Chloride 114 mmol/L (98-107); EST Glomerular Filtration Rate 80 mL/min (>60); Est Glom Filt Rate - Afr Amer 96 mL/min (>60); Estimated Creatinine Clearance 82.12 ml/min; Globulin 2.7 g/dL (2.2-4.2); Glucose 129 mg/dL (74-106); Potassium 4.1 mmol/L (3.5-5.1); Protein, Total 5.8 g/dL (6.4-8.2); Sodium Level 139 mmol/L (136-145)
[2021-09-28 23:28] LABS: Differential Indicated SCAN CRITERIA MET; White Blood Count 100.1 K/mm3 (4.4-11.0)
[2021-09-28 23:34] LABS: Lactic Acid 1.7 mmol/L (0.4-1.9)
--- NOTE | 2021-09-28 23:45 | EX.ED.DYSGE1 ---
HPI History of Present Illness Chief Complaint: Fever Narrative Narrative: 66-year-old male with CLL presenting for evaluation of a fever he had today. It is presumed by his oncologist that he had a reaction with zonisamide and Benadryl which caused a fever. Patient was receiving chemotherapy today with a CD20 antibody when he started to have allergic reaction he was given 100 mg of Benadryl. He states that his blood pressure dropped shortly after and when he was given the Benadryl his fever started. It was as high as 103 today. The patient took aspirin and took a shower and his fever broke. Patient states he is allergic to Tylenol and ibuprofen and cannot take these. Patient states that Dr. Mills was concerned that he might have a seizure because he has a seizure disorder and when he is febrile he does get seizures. He recommended he come to the emergency room for an evaluation and get lab work done because of the fever. Patient currently has no complaints. He does not feel unwell. He has no cough, fever, shortness of breath currently. He has no abdominal pain nausea or vomiting. He has no urinary complaints. No rashes. [facility] Medical History CLL (chronic lymphocytic leukemia) High cholesterol HTN (hypertension) Prostate CA Shingles Home Medications allopurinol 300 mg PO DAILY 05/06/15 [History Last Taken 05/06/15] acyclovir 400 mg PO BID 09/28/21 [History Last Taken Unknown] amlodipine 5 mg PO DAILY 09/28/21 [History Last Taken Unknown] aspirin [Aspir-81] 81 mg PO DAILY 09/28/21 [History Last Taken Unknown] atorvastatin [Lipitor] 40 mg PO QHS 09/28/21 [History Last Taken Unknown] clonazepam 0.5 mg PO QHS 09/28/21 [History Last Taken Unknown] clopidogrel 75 mg PO DAILY 09/28/21 [History Last Taken Unknown] oxcarbazepine 600 mg PO BID 09/28/21 [History Last Taken Unknown] prednisone 40 mg PO DAILY 09/28/21 [History Last Taken Unknown] zonisamide 200 mg PO BREAKFAST 09/28/21 [History Last Taken Unknown] zonisamide 500 mg PO QHS 09/28/21 [History Last Taken Unknown] Allergy/AdvReac Type Severity Reaction Status Date / Time acetaminophen [From Tylenol] Allergy Hives Verified 09/28/21 22:26 ibuprofen Allergy Hives Verified 09/28/21 22:26 Surgical History Stented coronary artery Social History Smoking Status: Never smoker ROS ROS ED Constitutional Constitutional ED: Reports fever(s); Denies sweats Eyes Eyes: Denies blurry vision or diplopia ENT ENT ED: Denies rhinorrhea or sore throat Cardiovascular Cardiovascular: Denies chest pain or palpitations Respiratory/Chest Respiratory/Chest: Denies cough or dyspnea Gastrointestinal Gastrointestinal: Denies abdominal pain, nausea or vomiting Genitourinary Genitourinary ED: Denies dysuria or hematuria Musculoskeletal Musculoskeletal: Denies arthralgias or myalgias Integumentary Denies rash Neurologic Neurologic: Denies headache(s) or paresthesias EXAM Physical Exam Const Vital Signs: 09/28/21 22:22 09/28/21 22:41 09/28/21 23:26 Temperature 97.5 F L 98.2 F Temperature Source Temporal Oral Pulse Rate 75 59 L Respiratory Rate 18 14 Respiratory Effort Normal Non-Labored Respiratory Pattern Normal Blood Pressure 133/74 H 125/80 H Blood Pressure Mean 93 95 Pulse Ox 96 95 Oxygen Delivery Method Room Air Room Air Room Air 09/29/21 00:59 09/29/21 01:12 09/29/21 01:45 Temperature 98.3 F 98.4 F Temperature Source Oral Pulse Rate 86 59 L Respiratory Rate 16 22 H Respiratory Effort Respiratory Pattern Blood Pressure 121/70 H 122/83 H Blood Pressure Mean 87 Pulse Ox 98 95 Oxygen Delivery Method Room Air Positive well nourished General Appearance ED: NAD; Negative for pallor HEENT Reports moist mucous membranes Negative for trauma Eyes PERRL and EOMs intact bilaterally Neck no lymphadenopathy and supple Chest Wall inspection of chest normal Resp normal respiratory effort and clear to auscultation bilaterally Cardio regular rate and regular rhythm GI normal to inspection, nondistended, normoactive bowel sounds Extremity normal to inspection General Extremety ED: Negative for edema or tenderness General Extremity: Negative for edema Neuro oriented x3 and CN's II-XII intact bilaterally Sensorium / Orientation: alert Skin no rashes or lesions noted General Skin Exam: Negative for jaundice or pallor MDM MDM MDM Narrative Medical decision making narrative: Patient presenting with history of fever. Dr. Mills believed it was due to a reaction of his zonisamide and Benadryl. Patient took 4 aspirin at home and took a cold shower and is now afebrile. He feels well. Because the patient is on chemotherapy and had a fever I did obtain a sepsis work-up. Patient's EKG is sinus rhythm with a ventricular rate of 55 bpm without sign of ischemic change or dysrhythmia on my interpretation. Chest x-ray on my interpretation shows no acute cardiopulmonary process and radiologist agree. High-sensitivity troponin is 14. CBC shows a white blood cell count of 100.1. Hemoglobin is 12.4. Platelets 198. Coagulation studies normal. Urinalysis negative for infection. Lactic acid within normal limits. I discussed the case with Dr. Mills and since the patient is feeling well and does not have return of his fever he recommends that he can be discharged home. He will follow-up with him tomorrow. He also asked that he does not take his zonisamide as he is concerned for reaction when he goes to chemotherapy again today. Patient acknowledged understanding of these instructions. He will be discharged home in stable condition. Impression: 1. Febrile illness 2. History of CLL Lab Data Attestation: I reviewed the patient's lab results. Labs: Laboratory Results - last 24 hr 09/28/21 09/28/21 09/28/21 22:45 22:55 22:55 WBC 100.1 H* RBC 4.31 L Hgb 12.4 L Hct 38.9 L MCV 90.3 MCH 28.8 MCHC 31.9 L RDW Std Deviation 52.9 H RDW Coeff of John 16.4 H Plt Count 198 MPV 9.8 Immature Gran % (Auto) 0.400 Neut % (Auto) 10.1 L Lymph % (Auto) 82.1 H M[place] % (Auto) 7.4 Eos % (Auto) 0.0 Baso % (Auto) 0.0 Absolute Neuts (auto) 10.1 H Absolute Lymphs (auto) 82.18 H Nucleated RBC % 0 Differential Comment SCANNED Diff Path Review November foll PT 14.6 INR 1.2 APTT 26.0 Sodium Potassium Chloride Carbon Dioxide Anion Gap BUN Creatinine Estim Creat Clear Calc Est GFR (MDRD) Af Amer Est GFR (MDRD) Non-Af BUN/Creatinine Ratio Glucose Lactic Acid Calcium Total Bilirubin AST ALT Alkaline Phosphatase Troponin I High Sens Total Protein Albumin Globulin Albumin/Globulin Ratio Urine Color Yellow Urine Clarity Clear Urine pH 5.0 Ur Specific [place] 1.015 Urine Protein Negative Urine Glucose (UA) Normal Urine Ketones Negative Urine Occult Blood 25 H Urine Nitrite Negative Urine Bilirubin Negative Urine Urobilinogen Normal Ur Leukocyte Esterase Negative Urine RBC 0-5 SEEN Urine WBC 0 SEEN Ur Squamous Epith Cells 0 SEEN Urine Bacteria 0 SEEN Urine Mucus 0 SEEN 09/28/21 09/28/21 09/28/21 22:55 22:55 22:55 WBC RBC Hgb Hct MCV MCH MCHC RDW Std Deviation RDW Coeff of John Plt Count MPV Immature Gran % (Auto) Neut % (Auto) Lymph % (Auto) [place] % (Auto) Eos % (Auto) Baso % (Auto) Absolute Neuts (auto) Absolute Lymphs (auto) Nucleated RBC % Differential Comment Diff Path Review PT INR APTT Sodium 139 Potassium 4.1 Chloride 114 H Carbon Dioxide 20.0 L Anion Gap 5 BUN 21 H Creatinine 1.00 Estim Creat Clear Calc 82.12 Est GFR (MDRD) Af Amer 96 Est GFR (MDRD) Non-Af 80 BUN/Creatinine Ratio 21.1 H Glucose 129 H Lactic Acid 1.7 Calcium 9.3 Total Bilirubin 0.10 L AST 43 H ALT 39 Alkaline Phosphatase 120 H Troponin I High Sens 14 Total Protein 5.8 L Albumin 3.1 L Globulin 2.7 Albumin/Globulin Ratio 1.1 Urine Color Urine Clarity Urine pH Ur Specific [place] Urine Protein Urine Glucose (UA) Urine Ketones Urine Occult Blood Urine Nitrite Urine Bilirubin Urine Urobilinogen Ur Leukocyte Esterase Urine RBC Urine WBC Ur Squamous Epith Cells Urine Bacteria Urine Mucus 09/28/21 22:55 WBC RBC Hgb Hct MCV MCH MCHC RDW Std Deviation RDW Coeff of John Plt Count MPV Immature Gran % (Auto) Neut % (Auto) Lymph % (Auto) [place] % (Auto) Eos % (Auto) Baso % (Auto) Absolute Neuts (auto) Absolute Lymphs (auto) Nucleated RBC % Differential Comment Diff Path Review PT INR APTT Sodium Potassium Chloride Carbon Dioxide Anion Gap BUN Creatinine Estim Creat Clear Calc Est GFR (MDRD) Af Amer Est GFR (MDRD) Non-Af BUN/Creatinine Ratio Glucose Lactic Acid Calcium Total Bilirubin AST ALT Alkaline Phosphatase Troponin I High Sens Cancelled Total Protein Albumin Globulin Albumin/Globulin Ratio Urine Color Urine Clarity Urine pH Ur Specific [place] Urine Protein Urine Glucose (UA) Urine Ketones Urine Occult Blood Urine Nitrite Urine Bilirubin Urine Urobilinogen Ur Leukocyte Esterase Urine RBC Urine WBC Ur Squamous Epith Cells Urine Bacteria Urine Mucus Radiography Diagnostic Testing: Clinical Impression(s) from Imaging Studies Chest X-Ray 09/28/21 23:05 IMPRESSION: No radiographic evidence of acute cardiopulmonary disease. Electronically Signed: Lam Hurtado MD at 23:46 EST , Discharge Plan Triage Chief Complaint: Fever ED Provider: Juan Hernadez Dx/Rx/DC Orders Clinical Impression: CLL Instructions: ED FUO Adult Prescriptions: No Action allopurinol 300 MG tablet 300 mg PO DAILY RF: 0 atorvastatin [Lipitor] 40 mg Tablet 40 mg PO QHS RF: 0 clonazepam 0.5 mg tablet 0.5 mg PO QHS RF: 0 clopidogrel 75 mg tablet 75 mg PO DAILY RF: 0 amlodipine 5 mg tablet 5 mg PO DAILY RF: 0 acyclovir 400 mg tablet 400 mg PO BID RF: 0 aspirin [Aspir-81] 81 mg Tablet,Delayed Release (Dr/Ec) 81 mg PO DAILY RF: 0 zonisamide 100 mg capsule 200 mg PO BREAKFAST RF: 0 zonisamide 100 mg capsule 500 mg PO QHS RF: 0 oxcarbazepine 600 mg tablet 600 mg PO BID RF: 0 prednisone 20 mg tablet 40 mg PO DAILY RF: 0 Primary Care Provider: Stanley Roper Referrals: Payam Mills DO [STAFF PHYSICIAN] - As soon as possible Stanley Roper MD [Primary Care Provider] - Disposition Disposition: Home, Self Care
--- NOTE | 2021-09-28 23:48 | EKG12_ITS ---
Test Reason : DYSRYTHMIA Blood Pressure : / mmHG Vent. Rate : 055 BPM Atrial Rate : 055 BPM P-R Int : 156 ms QRS Dur : 104 ms QT Int : 430 ms P-R-T Axes : 036 031 034 degrees QTc Int : 411 ms Sinus bradycardia Otherwise normal ECG Confirmed by ELLI FLOR, LINK ([id number]), editor & co founder SARI SAPP ([id number]) on 10/01/2021 1:27:16 PM Referred By: ROBERTO Confirmed By:LINK CALLOWAY MD
[2021-09-28 23:54] LABS: Differential Comment SCANNED
[2021-09-29 00:59] VITALS: BP 121/70; PULSE 86; RESP 16; O2SAT 98
[2021-09-29 01:12] VITALS: TEMP 36.8
[2021-09-29 01:45] VITALS: BP 122/83; PULSE 59; RESP 22; TEMP 36.9; O2SAT 95
--- NOTE | 2021-09-29 01:46 | ED.RN ---
iv site left in at this time due to patient having chemo treatment in a few hours. patient waiting in the room until time for treatment
[2021-09-29 02:05] LABS: Troponin-I HS 14 pg/mL (3.0-78.0)
[2021-09-30 14:27] LABS: Pathologist Review Reviewed
== END 2021-09-29 01:50 | disposition home or self-care (01) ==
PROVIDERS: Emergency Provider Student in an Organized Health Care Education/Training Program; PCP Family Medicine; Visit Provider Student in an Organized Health Care Education/Training Program
DX: C91.10 Chronic lymphocytic leukemia of B-cell type not having achieved remission (principal); G40.909 Epilepsy, unspecified, not intractable, without status epilepticus; I10 Essential (primary) hypertension; E78.00 Pure hypercholesterolemia, unspecified; Z85.46 Personal history of malignant neoplasm of prostate
CPT/HCPCS: 71046; 80053; 81001; 83605; 84484; 85025; 85610; 85730; 87040; 87086; 87635; 93005; 99283; J7030; A4216; U0003; U0005

== ENCOUNTER → 2022-04-02 | Outpatient (CLI) | payer MEDICARE, OTHER, SELFPAY ==
--- NOTE | 2022-04-02 | FLU_PTH ---
PAT[facility]: AP[facility]NA [id number] AGE/SX: 66/M ROOM: RE04/02/[address]: Dr. Hermelindo Barnett MD : 1955 BED: DIS: 04/02/2022 SPEC #: [id number] RECD: 04/06/22 10:59 STATUS: HEATHER REMary Lou #: [id number] JAG: 04/02/22 00:[address]: Hermelindo Barnett DEPT: CYTOLOGY RECD BY: Stevenson Hector ENTERED: 04/06/22 11:00 SP TYPE: Fluid OTHR DR: Dr. Stanley Roper MD Tissues: Neck, NOS Procedures: Special Stain Group II Surgery Specimen Level IV Cytospin Fluid HEADER OPERATION: Fine needle aspiration/core biopsy, left supraclavicular lymph node PRE-OP DIAGNOSIS: Left neck adenopathy TISSUE SUBMITTED: Left neck fluid for cytology DIAGNOSIS CYTOLOGY Fine needle aspiration, left neck node (cytospin and cell block): Scant polytypic lymphocytes are present. No evidence of carcinoma. See comment. AM:loreta 04/08/2022 COMMENT Immunohistochemistry ([id number]) supports the above diagnosis. An incision/excisional biopsy is recommended for definitive classification. Case has been reviewed in consultation with Dr. Cunha who concurs with the above diagnosis. IDC:SJ CYTOLOGY STUDY Slides are reviewed. CYTOLOGY GROSS Received is 30 ml of cloudy fluid labeled with the patient's name and and designated per the requisition as left supraclavicular lymph node. Submitted for cytology preparation including cell block. / loreta 04/06/2022 TC:5 CPT: 79257, 43857
--- NOTE | 2022-04-02 | IMM_PTH ---
PATIENT: APARNA JO LOC: [facility] U#:[id number] AGE/SX: 66/M ROOM: RE04/02/[address]: Dr. Hermelindo Barnett MD : 1955 BED: DIS: 04/02/2022 SPEC #: [id number] RECD: 04/07/22 13:20 STATUS: HETAHER REQ #: [id number] JAG: 04/02/22 00:[address]: Hermelindo Barnett DEPT: IMMUNOHISTOCHEMISTRY RECD BY: Elizabeth Antony ENTERED: 04/07/22 13:21 SP TYPE: IMMUNO OTHR DR: Dr. Stanley Roper MD Tissues: Neck, NOS Procedures: BCL-2 (add) CD10 (add) CD20 (add) CD23 (add) CD3 (add) CD43 (add) CD45 (add) CD5 (add) CD79A (add) Pankeratin (initial) PHYSICIAN & INSTITUTION [place] [phone] SPECIMEN INFORMATION: Tissue Source: Left neck FNA Clinical Info: Left neck adenopathy Specimen Number: [id number] CPT code: 59538, 87414 x9 METHODOLOGY: Deparaffinized sections of prefer/formalin-fixed tissue or PAP/DQ stained slides are incubated with monoclonal/polyclonal antibodies/oligonucleotide probes. Localization is made via biotin free immunoperoxidase method. Appropriate controls are performed and reacted as expected. Results on target cell population are indicated in the following table: RESULTS: ANTIBODY / CLONE RESULT AE1-3 (AE1/AE3/PCK26) negative CD3 (PS1) positive, occasional CD5 (SP10) positive CD10 (56C6) negative CD20 (L26) positive CD23 (1B12) negative CD43 (L60) positive CD45 (RP2/18) positive CD79a (11E3) positive BCL-2 (bcl-2/100/D5) positive These tests were developed and their performance characteristics determined by [facility]. They may not have been cleared or approved by the U.S. Food and Drug Administration. The FDA has determined that such clearance or approval is not necessary. The above immunohistochemical/dualISH markers are ordered and reviewed by the Pathologist. INTERPRETATION: Left neck, fine needle aspiration: Polytypic lymphocytes present. AM:loreta 04/08/2022
== END | disposition home or self-care (01) ==
PROVIDERS: PCP Family Medicine; Referring Provider Otolaryngology; Visit Provider Otolaryngology
DX: R59.0 Localized enlarged lymph nodes (principal)
CPT/HCPCS: 88108; 88305; 88313; 88341; 88342

== ENCOUNTER 2024-12-11 06:30 | Day surgery (SDC) | payer MEDICARE, OTHER, SELFPAY ==
--- NOTE | 2024-12-06 16:25 | PAT.ANESEVAL ---
Pre-Assessment Diagnosis/Proposed Procedure Planned Operative Procedure(s): CSCOPE Anesthesia History Anesthesia History - retort feeder ground bone: Anesthesia History - retort feeder ground bone Hx Hospitalization No 12/06/24 10:03 Any Problems With Anesthesia Yes: PT HOB NEEDS TO STAY 12/06/24 10:03 ELEVATED DUE TO AKALASIA Cholinesterase deficiency No 12/06/24 10:03 You/Your Family Experience No 12/06/24 10:03 fever (hyperthermia) with Relationship Recent Exposure to Contagious Disease Does patient have nerve No 12/06/24 10:03 stimulator Patient instructed to have device shut off --Does patient have Pacemaker or ICD? When Was Last Pacemaker Check QUESTION #4 FULL TEXT: You/Your Family Experience fever (hyperthermia) with Anesthesia Last Oral Intake Last Oral intake: Last Oral Intake NPO since Meds taken in AM with sips of water? Meds patient instructed to take am of surgery PONV PONV - retort feeder ground bone: PONV - retort feeder ground bone Female No 12/06/24 10:03 HX of Motion Sickness No 12/06/24 10:03 HX of N/V After Surgery No 12/06/24 10:03 Non-Smoker Yes 12/06/24 10:03 Duration of Surgery greater No 12/06/24 10:03 than 60 minutes Number of Risk Factors 1 12/06/24 10:03 PONV Score Low Risk 12/06/24 10:03 Height & Weight Height & Weight: Anesthesia: Height & Weight Height 6 ft 1 in 11/16/24 13:05 Respiratory Assessment Respiratory Assessment - retort feeder ground bone: Respiratory Tract Infection Hx - retort feeder ground bone Hx Respiratory Tract Infection No 12/06/24 10:03 STOP Sleep Apnea STOP Sleep Apnea - retort feeder ground bone: STOP Sleep Apnea - retort feeder ground bone Hx Hypertension Yes: CONTROLLED WITH MED 12/06/24 10:03 Hx Sleep Apnea No 12/06/24 10:03 CPAP No 05/06/15 14:18 BIPAP No 05/06/15 14:18 Do you snore loudly (louder No 12/06/24 10:03 than talking or can be heard Do you often feel tired/ No 12/06/24 10:03 fatigued/ sleepy during daytime? Has anyone observed you stop No 12/06/24 10:03 breathing during sleep? STOP Results Negative 12/06/24 10:03 QUESTION #5 FULL TEXT : Do you snore loudly (louder than talking or can be heard through closed doors)? 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 Specify any problems Hx of Preganancy in last 3 N/A 12/06/24 10:03 Months Nurse Filling Out Transfusion NBUCHER 12/06/24 10:03 & Questions: Date: 12/06/24 12/06/24 10:03 Time: 10:06 12/06/24 10:03 Patient unable to answer at this time (ie. confused, unrespo /Reproduction History /Reproductive History - retort feeder ground bone: /Reproductive Hx- retort feeder ground bone Hx Now No 12/06/24 10:03 Gestational Age (in weeks): EDC: Hx Hx Para Hx Section SAB No 12/06/24 10:03 PFSH Medical History (Updated 12/06/24 @ 10:16 by Linda Barth) Wears glasses Cancer Gout Prostate disease History of leukemia Restless legs Epilepsy Seizures Difficulty swallowing Achalasia Gastric reflux Non-smoker History of kidney stones History of echocardiogram History of stress test Cardiology follow-up encounter Positive colorectal cancer screening using Cologuard test Prostate CA Shingles High cholesterol HTN (hypertension) CLL (chronic lymphocytic leukemia) Home Medications ?Medication ?Instructions ?Recorded ?Last Taken ?Type allopurinol 300 mg tablet 300 mg PO DAILY 05/06/15 05/06/15 History acyclovir 400 mg tablet 400 mg PO BID 09/28/21 Unknown History amlodipine 5 mg tablet 5 mg PO DAILY 09/28/21 Unknown History aspirin 81 mg tablet,delayed 81 mg PO DAILY 09/28/21 Unknown History release clonazepam 0.5 mg tablet 0.5 mg PO QHS 09/28/21 Unknown History oxcarbazepine 600 mg tablet 600 mg PO BID 09/28/21 Unknown History zonisamide 100 mg capsule 200 mg PO BREAKFAST 09/28/21 Unknown History zonisamide 100 mg capsule 500 mg PO QHS 09/28/21 Unknown History losartan 50 mg tablet 50 mg PO QDAY 11/16/24 Unknown History tadalafil 20 mg tablet 10 mg PO QHS 11/16/24 Unknown History zanubrutinib 80 mg capsule 160 mg PO BID 11/16/24 Unknown History (Brukinsa) atorvastatin 40 mg tablet 40 mg PO DAILY 12/06/24 Unknown History Allergy/AdvReac Type Severity Reaction Status Date / Time bee venom protein (honey Allergy Severe Anaphylaxis Verified 12/06/24 09:57 bee) (bees) acetaminophen (From Tylenol) Allergy Hives Verified 12/06/24 09:57 ibuprofen Allergy Hives Verified 12/06/24 09:57 Surgical History (Updated 12/06/24 @ 10:16 by Linda Barth) History of coronary artery stent placement History of cardiac catheterization History of prostatectomy Stented coronary artery Social History (Updated 11/16/24 @ 13:05 by Kajal Subramanian LPN) Smoking Status: Never smoker alcohol intake: never substance use type: does not use Audit: Pertinent Findings Pertinent Findings EKG Perinent findings: October 07, 2023. Sinus bradycardia 47 bpm. Occasional PVC. September 29, 2021. Sinus bradycardia at 55 bpm. Echo (EF%) pertinent findings: October 03, 2023. Normal EF of 60 to 65%. Ventricular septum thickness was moderately increased to 18 mm. Ascending aorta is dilated to 3.8 cm. Mild to moderate regurgitation of the tricuspid valve. No aortic stenosis is noted. Heart catheterization pertinent findings: July 13, 2021. Multivessel disease. Patient is deemed too high risk for CABG. July 17, 2021. PCI with 2 stents placed in the LAD. Residual disease in the OM off left circumflex to be treated with medical therapy. 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 1. Atrial [id number] event occurred after an anaphylactic reaction. Follow-up event monitor did not show atrial fibrillation. Eliquis was discontinued. [id number] score is 3. 2. Coronary artery ychnuia-zriign-[id number] anginal symptoms noted. Tolerating medication. Status post 2 stents to the LAD in 2020. 3. Left ventricular hypertrophy-recent echo shows septum measuring 1.8 continue to monitor. 4. Hypertension?controlled Recommendation Anesthesia Recommendation Anesthesia recommendation: F/U recommended (I do not see a stress test on the patient. Was it done at outside hospital?)
--- NOTE | 2024-12-07 21:24 | PAT.ANE_ITS ---
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 When Was Last Pacemaker Check QUESTION #4 FULL TEXT: You/Your Family Experience fever (hyperthermia) with Anesthesia Last Oral Intake Last Oral intake: Last Oral Intake NPO since Meds taken in AM with sips of water? Meds patient instructed to take am of surgery PONV PONV - assistant professor nurse education: PONV - assistant professor nurse education Female No 12/06/24 10:03 HX of Motion Sickness No 12/06/24 10:03 HX of N/V After Surgery No 12/06/24 10:03 Non-Smoker Yes 12/06/24 10:03 Duration of Surgery greater No 12/06/24 10:03 than 60 minutes Number of Risk Factors 1 12/06/24 10:03 PONV Score Low Risk 12/06/24 10:03 Height & Weight Height & Weight: Anesthesia: Height & Weight Height 6 ft 1 in 11/16/24 13:05 Respiratory Assessment Respiratory Assessment - assistant professor nurse education: Respiratory Tract Infection Hx - assistant professor nurse education Hx Respiratory Tract Infection No 12/06/24 10:03 STOP Sleep Apnea STOP Sleep Apnea - assistant professor nurse education: STOP Sleep Apnea - assistant professor nurse education Hx Hypertension Yes: CONTROLLED WITH MED 12/06/24 10:03 Hx Sleep Apnea No 12/06/24 10:03 CPAP No 05/06/15 14:18 BIPAP No 05/06/15 14:18 Do you snore loudly (louder No 12/06/24 10:03 than talking or can be heard Do you often feel tired/ No 12/06/24 10:03 fatigued/ sleepy during daytime? Has anyone observed you stop No 12/06/24 10:03 breathing during sleep? STOP Results Negative 12/06/24 10:03 QUESTION #5 FULL TEXT : Do you snore loudly (louder than talking or can be heard through closed doors)? 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 Specify any problems Hx of Preganancy in last 3 N/A 12/06/24 10:03 Months Nurse Filling Out Transfusion NBUCHER 12/06/24 10:03 & Questions: Date: 12/06/24 12/06/24 10:03 Time: 10:06 12/06/24 10:03 Patient unable to answer at this time (ie. confused, unrespo /Reproduction History /Reproductive History - assistant professor nurse education: /Reproductive Hx- assistant professor nurse education Hx Now No 12/06/24 10:03 Gestational Age (in weeks): EDC: Hx Hx Para Hx Section SAB No 12/06/24 10:03 PFSH Medical History (Updated 12/06/24 @ 10:16 by Linda Barth) Wears glasses Cancer Gout Prostate disease History of leukemia Restless legs Epilepsy Seizures Difficulty swallowing Achalasia Gastric reflux Non-smoker History of kidney stones History of echocardiogram History of stress test Cardiology follow-up encounter Positive colorectal cancer screening using Cologuard test Prostate CA Shingles High cholesterol HTN (hypertension) CLL (chronic lymphocytic leukemia) Home Medications ?Medication ?Instructions ?Recorded ?Last Taken ?Type allopurinol 300 mg tablet 300 mg PO DAILY 05/06/1501/13 History acyclovir 400 mg tablet 400 mg PO BID 09/28/21 Unkno wn History amlodipine 5 mg tablet 5 mg PO DAILY 09/28/21 Unkno wn History aspirin 81 mg tablet,delayed 81 mg PO DAILY 09/28/21 U nknown History release clonazepam 0.5 mg tablet 0.5 mg PO QHS 09/28/21 Unkno wn History oxcarbazepine 600 mg tablet 600 mg PO BID 09/28/21 Unk nown History zonisamide 100 mg capsule 200 mg PO BREAKFAST 09/28/21 Unknown History zonisamide 100 mg capsule 500 mg PO QHS 09/28/21 Unkno wn History losartan 50 mg tablet 50 mg PO QDAY 11/16/24 Unkno wn History tadalafil 20 mg tablet 10 mg PO QHS 11/16/24 Unknow n History zanubrutinib 80 mg capsule 160 mg PO BID 11/16/24 Unkn own History (Brukinsa) atorvastatin 40 mg tablet 40 mg PO DAILY 12/06/24 Unkn own History Allergy/AdvReac Type Severity Reaction Status Date / Time bee venom protein (honey Allergy Severe Anaphylaxis Verified 12/06/24 09:57 bee) (bees) acetaminophen (From Tylenol) Allergy Hives Verified 12/06/24 09:57 ibuprofen Allergy Hives Verified 12/06/24 09:57 Surgical History (Updated 12/06/24 @ 10:16 by Linda Barth) History of coronary artery stent placement History of cardiac catheterization History of prostatectomy Stented coronary artery Social History (Updated 11/16/24 @ 13:05 by Kajal Subramanian LPN) Smoking Status: Never smoker alcohol intake: never substance use type: does not use Audit: Pertinent Findings HISTORY of Pertinent Findings History of Pertinent Findings: EKG Pertinent Findings EKG Perinent findings October 07, 2023. Sinus 12/06/24 16:52 bradycardia 47 bpm. Occasional PVC. September 29, 2021. Sinus bradycardia at 55 bpm. Echo Pertinent Findings Echo (EF%) pertinent findings October 03, 2023. Normal EF of 12/06/24 16:44 60 to 65%. Ventricular septum thickness was moderately increased to 18 mm. Ascending aorta is dilated to 3.8 cm. Mild to moderate regurgitation of the tricuspid valve. No aortic stenosis is noted. Heart Catheterization Pertinent Findings Heart catheterization July 13, 2021. 12/06/24 16:44 pertinent findings Multivessel disease. Patient is deemed too high risk for CABG. July 17, 2021. PCI with 2 stents placed in the LAD. Residual disease in the OM off left circumflex to be treated with medical therapy . 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 12/06/24 16:46 1. Atrial fibrillation- stable-single event occurred after an anaphylactic reaction. Follow-up event monitor did not show atrial fibrillation. Eliquis was discontinued. [id number] score is 3. 2. Coronary artery disease- stable-no anginal symptoms noted. Tolerating medication. Status post 2 stents to the LAD in 2020. 3. Left ventricular hypertrophy-recent echo shows septum measuring 1.8 continue to monitor. 4. Hypertension?controlled Pertinent Findings Stress test pertinent findings: Nuclear stress test (07/2021): 1) mainly reversible ischemia in the mid to distal anterior wall and apex 2)calculated EF 65% with mild hypokensis of the apex 3)TID ratio of 0.99 Recommendation Anesthesia Recommendation Anesthesia recommendation: OPTIMIZED for anesthesia (please obtain EKG morning of procedure)
[2024-12-11] VITALS (7 sets, daily range): BP systolic 117–136; BP diastolic 75–82; PULSE 50–89; RESP 14–17; TEMP 36.2–36.6; O2SAT 96–98; BMI 32.8
[2024-12-11] MEDS: Lactated Ringers 1,000 ML 15 ML IV (07:10)
--- NOTE | 2024-12-11 07:44 | EKG12_ITS ---
Test Reason : PREOP Blood Pressure : */* mmHG Vent. Rate : 50 BPM Atrial Rate : 50 BPM P-R Int : 188 ms QRS Dur : 110 ms QT Int : 462 ms P-R-T Axes : 47 66 42 degrees QTcB Int : 421 ms Sinus bradycardia with sinus arrhythmia Otherwise normal ECG Confirmed by ELLI FLOR, LINK ([id number]), editor map ANGELICA HERNANDEZ ([id number]) on 12/17/2024 9:30:58 AM Referred By: Stanley Roper Confirmed By: LINK CALLOWAY MD
--- NOTE | 2024-12-11 07:47 | PCM.PRE.AN2 ---
ASA Classification* ASA Classification ASA Classification: 3 Assessment & Plan Anesthesia* Anesthesia Assessment Anesthesia Assessment: Discussed sedation and/or anesthesia options, risks, benefits, and alternatives with patient/parents/legal guardian/POA. Questions invited. The patient/parents/legal guardian/POA seems to understand and agrees to proceed with anesthesia plan. Reviewed the physical assessment, medical history, allergy history and patient home medications list prior to surgery/procedure/anesthetic and documented any changes. Performed airway and anesthesia risk assessments. Anesthesia Type Anesthesia Type: MAC History Source History Obtained from:: Patient and Chart Anesthesia Focused Assessment* Temperature: 97.8 F Pulse Rate: 50 Blood Pressure: 123/75 Respiratory Rate: 16 Pulse Ox: 98 Oxygen Delivery Method: Room Air Airway Assessment Mouth opens: >3 cm Mallampati Score: III Teeth Condition: Chipped/Broken Focused Labs Anesthesia Preop lab: CBC WBC 100.1 K/mm3 (4.4-11.0) H* 09/28/21 22:55 09/28/21 RBC 4.31 M/mm3 (4.6-6.2) L 09/28/21 22:55 09/28/21 Hgb 12.4 g/dL (13.0-16.5) L 09/28/21 22:55 09/28/21 Hct 38.9 % (40-54) L 09/28/21 22:55 09/28/21 Plt Count 198 K/mm3 (150-450) 09/28/21 22:55 09/28/21 CHEMISTRY Potassium 4.1 mmol/L (3.5-5.1) 09/28/21 22:55 09/28/21 Sodium 139 mmol/L (136-145) 09/28/21 22:55 09/28/21 BUN 21 mg/dL (7-18) H 09/28/21 22:55 09/28/21 Creatinine 1.00 mg/dL (0.70-1.30) 09/28/21 22:55 09/28/21 Glucose 129 mg/dL (74-106) H 09/28/21 22:55 09/28/21 COAG PT 14.6 SECONDS (11.7-14.9) 09/28/21 22:55 09/28/21 Pre-Assessment Diagnosis/Proposed Procedure Planned Operative Procedure(s): CSCOPE Anesthesia History 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 When Was Last Pacemaker Check QUESTION #4 FULL TEXT: You/Your Family Experience fever (hyperthermia) with Anesthesia Last Oral Intake Last Oral intake: Last Oral Intake NPO since 05:15 12/11/24 07:04 Meds taken in AM with sips of Yes 12/11/24 07:04 water? 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 Female No 12/06/24 10:03 HX of Motion Sickness No 12/06/24 10:03 HX of N/V After Surgery No 12/06/24 10:03 Non-Smoker Yes 12/06/24 10:03 Duration of Surgery greater No 12/06/24 10:03 than 60 minutes Number of Risk Factors 1 12/06/24 10:03 PONV Score Low Risk 12/06/24 10:03 Height & Weight Height & Weight: Anesthesia: Height & Weight Height 6 ft 1 in 12/11/24 07:04 Weight: 112.9 kg 12/11/24 07:04 Body Mass Index (BMI) 32.8 12/11/24 07:04 Respiratory Assessment Respiratory Assessment - roll coating machine operator: Respiratory Tract Infection Hx - roll coating machine operator Hx Respiratory Tract Infection No 12/06/24 10:03 STOP Sleep Apnea STOP Sleep Apnea - roll coating machine operator: STOP Sleep Apnea - roll coating machine operator Hx Hypertension Yes: CONTROLLED WITH MED 12/06/24 10:03 Hx Sleep Apnea No 12/06/24 10:03 CPAP No 05/06/15 14:18 BIPAP No 05/06/15 14:18 Do you snore loudly (louder No 12/06/24 10:03 than talking or can be heard Do you often feel tired/ No 12/06/24 10:03 fatigued/ sleepy during daytime? Has anyone observed you stop No 12/06/24 10:03 breathing during sleep? STOP Results Negative 12/06/24 10:03 QUESTION #5 FULL TEXT : Do you snore loudly (louder than talking or can be heard through closed doors)? 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 Specify any problems Hx of Preganancy in last 3 N/A 12/06/24 10:03 Months Nurse Filling Out Transfusion NBUCHER 12/06/24 10:03 & Questions: Date: 12/06/24 12/06/24 10:03 Time: 10:06 12/06/24 10:03 Patient unable to answer at this time (ie. confused, unrespo /Reproduction History /Reproductive History - roll coating machine operator: /Reproductive Hx- roll coating machine operator Hx Now No 12/06/24 10:03 Gestational Age (in weeks): EDC: Hx Hx Para Hx Section SAB No 12/06/24 10:03 Active Medications Active Medications: Current Medications Generic Name Dose Route Start Last Admin Trade Name Freq PRN Reason Stop Dose Admin Lactated Ringer's 1,000 mls @ 15 mls/hr 12/11/24 06:45 12/11/24 07:10 IV 15 mls/hr .Q48H IRENE Administration PFSH Medical History Wears glasses Cancer Gout Prostate disease History of leukemia Restless legs Epilepsy Seizures Difficulty swallowing Achalasia Gastric reflux Non-smoker History of kidney stones History of echocardiogram History of stress test Cardiology follow-up encounter Positive colorectal cancer screening using Cologuard test Prostate CA Shingles High cholesterol HTN (hypertension) CLL (chronic lymphocytic leukemia) Home Medications ?Medication ?Instructions ?Recorded ?Last Taken ?Type allopurinol 300 mg tablet 300 mg PO DAILY 05/06/15 12/11/24 05:15 History acyclovir 400 mg tablet 400 mg PO BID 09/28/21 Unknown History amlodipine 5 mg tablet 5 mg PO DAILY 09/28/21 12/11/24 05:15 History aspirin 81 mg tablet,delayed 81 mg PO DAILY 09/28/21 12/11/24 05:15 History release clonazepam 0.5 mg tablet 0.5 mg PO QHS 09/28/21 Unknown History oxcarbazepine 600 mg tablet 600 mg PO BID 09/28/21 12/11/24 05:15 History zonisamide 100 mg capsule 200 mg PO BREAKFAST 09/28/21 12/11/24 05:15 History zonisamide 100 mg capsule 500 mg PO QHS 09/28/21 Unknown History losartan 50 mg tablet 50 mg PO QDAY 11/16/24 12/11/24 05:15 History tadalafil 20 mg tablet 10 mg PO QHS 11/16/24 12/10/24 20:00 History zanubrutinib 80 mg capsule 160 mg PO BID 11/16/24 12/11/24 05:15 History (Brukinsa) atorvastatin 40 mg tablet 40 mg PO DAILY 12/06/24 Unknown History Allergy/AdvReac Type Severity Reaction Status Date / Time bee venom protein (honey Allergy Severe Anaphylaxis Verified 12/11/24 07:03 bee) (bees) tramadol Allergy Severe Other Verified 12/11/24 07:03 acetaminophen (From Tylenol) Allergy Hives Verified 12/11/24 07:03 ibuprofen Allergy Hives Verified 12/11/24 07:03 lidocaine AdvReac Severe Other Verified 12/11/24 07:03 Surgical History History of coronary artery stent placement History of cardiac catheterization History of prostatectomy Stented coronary artery Social History Smoking Status: Never smoker alcohol intake: never substance use type: does not use Review of Systems (Anesthesia) ROS Narrative System reviewed and no additional complaints, except as documented. Physical Exam Const alert and oriented x3 Resp normal respiratory effort Cardio regular rate and regular rhythm
--- NOTE | 2024-12-11 07:53 | HP.PCM_ITS ---
History and Physical Date of Admission: 12/11/24 Intake Vital Signs 09/28/2221:22 11/16/2512:05 Height 6 ft 1 in 6 ft 1 in Weight: 250 lb 6 oz BMI 33.0 BP 145/82 H Blood Pressure Location Rt brachial Position Sitting Respiration 17 Pulse 72 Pulse Source Monitor Temp 97.4 F L Temp Source Temporal Pulse Oximetry (%) 98 Oxygen Delivery Method room air Intake Visit Reasons: POSITIVE COLOGUARD Chief Complaint: positive cologuard Is patient in pain?: No Allergies acetaminophen (From Tylenol) Allergy (Verified 11/16/24 13:06) Hivesibuprofen Allergy (Verified 11/16/24 13:06) Hives Medications ?Medication ?Instructions ?Recorded ?Confirmed ?Type allopurinol 300 mg tablet 300 mg PO DAILY 05/06/15 11/16/24 Histor y acyclovir 400 mg tablet 400 mg PO BID 09/28/21 11/16/24 History amlodipine 5 mg tablet 5 mg PO DAILY 09/28/21 11/16/24 History aspirin 81 mg tablet,delayed 81 mg PO DAILY 09/28/21 11/16/24 History release clonazepam 0.5 mg tablet 0.5 mg PO QHS 09/28/21 11/16/24 History oxcarbazepine 600 mg tablet 600 mg PO BID 09/28/21 11/16/24 History zonisamide 100 mg capsule 200 mg PO BREAKFAST 09/28/21 11/16/24 Hi story zonisamide 100 mg capsule 500 mg PO QHS 09/28/21 11/16/24 History losartan 50 mg tablet 50 mg PO QDAY 11/16/24 11/16/24 History tadalafil 20 mg tablet mg PO 11/16/24 11/16/24 History zanubrutinib 80 mg capsule 160 mg PO BID 11/16/24 11/16/24 History ([place]) Have you fallen in the past year?: No PFSH Medical History (Updated 11/16/24 @ 12:44 by Meagan Prado) Positive colorectal cancer screening using Cologuard test Prostate CA Shingles High cholesterol HTN (hypertension) CLL (chronic lymphocytic leukemia) Surgical History Stented coronary artery Social History (Updated 11/16/24 @ 13:05 by Kajal Subramanian LPN) Smoking Status: Never smoker alcohol intake: never substance use type: does not use HPI HPI HPI: Patient is a 69-year-old male here for positive Cologuard. Patient had his last colonoscopy in 2011. He denies abdominal pain or blood in the stool. He has no family history of colon cancer. ROS General General: No weight change, appetite, fatigue, colon cancer, breast cancer or weakness HEENT HEENT: Yes difficulty swallowing; No eye injury, eye surgery, swollen glands or hoarseness Endo Endocrine: No thyroid disease, diabetes mellitus, thyroid cancer, Hair loss, heat intolerance or cold intolerance Skin Skin: No rash or changing moles Musc Musculoskeletal: No back problems, arthritis, rheumatoid arthritis, gout or joint pain Cardio Cardiovascular: Yes high blood pressure and heart stent; No murmur, pacemaker, heart disease, atrial fibrillation, heart attack, palpitations, shortness of breath with exertion or chest pain Psych Psychiatric: No depression, anxiety or hearing voices Resp Respiratory: No shortness of breath, No sleep apnea, No cough, No COPD, No asthma, No emphysema and No wheezing Gastro Gastrointestinal: No abdominal pain, No nausea or vomiting, No diarrhea, Yes constipation, No blood in stool, Yes acid reflux, No hemorrhoids, No ulcers, No gallbladder problem and No black,tarry stools Vamsi Hematologic: Yes blood thinners, No blood disorders, No bleeding, No anemia and No blood clots Additional Details: 81mg aspirin Neuro Neurologic: No numbness, No tingling and No weakness Exam Const General: cooperative Orientation: alert and oriented x3 HENMT Head: normal to inspection Neck Neck: normal visual inspection and full ROM Chest Chest palpation & inspection: normal inspection of the chest Resp Effort & Inspection: normal respiratory effort Auscultation: clear to auscultation bilaterally Cardio Rate: regular rate Rhythm: regular rhythm GI Inspection: non-distended Palpation: soft and nontender Skin General: no rashes or lesions noted Neuro General: patient alert and patient oriented x3 Extrem General: full ROM Psych Appearance: grossly normal Mental Status: mental status grossly normal Assessment and Plan Assessment and Plan (1) Positive colorectal cancer screening using Cologuard test: Status: Acute Plan: I explained endoscopy in detail to the patient. I explained the risks including but not limited to stroke or heart attack with anesthesia, perforation of the GI tract, bleeding, infection. I explained that any of these could necessitate further emergency surgery. The patient understands and all questions were answered sufficiently. The patient wishes to proceed with procedure. Patient will continue his aspirin for the procedure Patel Groves MD Pager: [facility] [address] [place] [address], [address] [place] [address] Office: I have examined the patient and the H&P has been reviewed. There are no clinical changes since date of exam.
--- NOTE | 2024-12-11 08:30 | PCM.POSTANE2 ---
Anesthesia Postop Eval I Sum Anesthesia Postop Eval I Summary Anesthesia Postop Eval I Summary: Anesthesia Postop Eval I: Assessment Summary Airway patent Spontaneous unlabored respirations Mental status nausea Vomiting Anesthesia Postop Eval I: Fluid Summary Crystalloid volume administer (ml) Colloids volume administered ( ml) Blood Product volume administered (ml) Total IV fluid infused Anesthesia Postop Eval I: Summary Notes Anesthesia Complication Anesthesia Complication Comment: Post-operative progress note Anesthesia: Postop Eval II Evaluation Mental status: Awake and Calm Pain Level: 0 nausea: No Vomiting: No Complications Anesthesia Complication: No
--- NOTE | 2024-12-11 08:32 | OP.CCLET_ITS ---
12/11/2024 Stanley Roper Re : Colonoscopy procedure for Keyshawn Julio Dear Judson This procedure was performed on Wednesday, December 11, 2024. My impressions and recommendations are as follows: Impressions : - The entire examined colon is normal on direct and retroflexion views. - No specimens collected. Recommendations : - Discharge patient to home. - Resume previous diet. - Continue present medications. - Repeat colonoscopy is not recommended due to current age (66 years or older) for screening purposes. My findings are described in the full procedure note, which is enclosed. If I can be of further assistance, please feel free to contact me at Doctor phone number(s): , Work: . Sincerely, Patel Groves MD 12/11/2024 8:31:21 AM This report has been signed electronically.
--- NOTE | 2024-12-11 08:32 | OP.COLON_ITS ---
Patient Name: Keyshawn Julio Procedure Date: 12/11/2024 7:55 AM Date of : 1955 Age: 69 Procedure: Colonoscopy Indications: Positive Cologuard test Providers: Patel Groves MD Referring MD: Stanley Roper Medicines: Propofol per Anesthesia Patient Profile: This is a 69 year old male. Refer to note in patient chart for documentation of history and physical. Last Colonoscopy: more than 10 years ago. Complications: No immediate complications. Procedure: Pre-Anesthesia Assessment: - Prior to the procedure, a History and Physical was performed, and patient medications and allergies were reviewed. The patient's tolerance of previous anesthesia was also reviewed. The risks and benefits of the procedure and the sedation options and risks were discussed with the patient. All questions were answered, and informed consent was obtained. Prior Anticoagulants: The patient has taken no anticoagulant or antiplatelet agents. After reviewing the risks and benefits, the patient was deemed in satisfactory condition to undergo the procedure. After I obtained informed consent, the scope was passed under direct vision. Throughout the procedure, the patient's blood pressure, pulse, and oxygen saturations were monitored continuously. The was introduced through the anus and advanced to the cecum, identified by appendiceal orifice and ileocecal valve. The colonoscopy was performed without difficulty. The patient tolerated the procedure well. The quality of the bowel preparation was good. The ileocecal valve, appendiceal orifice, and rectum were photographed. Scope In: 8:10:38 AM Scope Withdrawal Time 0 hours 5 minutes 15 seconds Scope Out: 8:27:47 AM Total Procedure Duration Time 0 hours 17 minutes 9 seconds Findings: The entire examined colon appeared normal on direct and retroflexion views. Impression: - The entire examined colon is normal on direct and retroflexion views. - No specimens collected. Recommendation: - Discharge patient to home. - Resume previous diet. - Continue present medications. - Repeat colonoscopy is not recommended due to current age (66 years or older) for screening purposes. Procedure Code(s): --- Professional --- 30030, Colonoscopy, flexible; diagnostic, including collection of specimen(s) by brushing or washing, when performed (separate procedure) Diagnosis Code(s): --- Professional --- R19.5, Other fecal abnormalities CPT copyright 2021 [employer]. All rights reserved. The codes documented in this report are preliminary and upon wind project manager review may be revised to meet current compliance requirements. Patel Groves MD 12/11/2024 8:31:21 AM This report has been signed electronically. Number of Addenda: 0 Note Initiated On: 12/11/2024 7:55 AM
--- NOTE | 2024-12-11 08:40 | PCM.POST.ANE ---
Anesthesia: Postop Eval I Current Vital Signs Temperature: 97.4 F Pulse Rate: 87 Blood Pressure: 117/79 Respiratory Rate: 17 Pulse Ox: 97 Oxygen Delivery Method: Room Air Assessment Airway patent: Yes Spontaneous unlabored respirations: Yes Mental status: Awake and Calm nausea: No Vomiting: No Anesthesia Complication: No Fluid Hydration Crystalloid volume administer (ml): 800 Total IV fluid infused: 800 Progress Note Anesthesia document: Postop Eval 1 completed: Yes
== END 2024-12-11 09:23 | disposition home or self-care (01) ==
LOC: EN 06:31 → AC 06:32
PROVIDERS: PCP Family Medicine; Referring Provider Family Medicine; Visit Provider Surgery
PROC: 0DJD8ZZ Inspection of Lower Intestinal Tract, Via Natural or Artificial Opening Endoscopic (ICD-10-PCS; CPT 45378; principal; 2024-12-11 07:55)
DX: R19.5 Other fecal abnormalities (principal); C91.11 Chronic lymphocytic leukemia of B-cell type in remission; I10 Essential (primary) hypertension; E78.00 Pure hypercholesterolemia, unspecified; Z85.46 Personal history of malignant neoplasm of prostate
CPT/HCPCS: 45378; 93005; J2405